=== PATIENT | male | born 1990 ===

== ENCOUNTER 2019-05-14 09:40 | Day surgery (SDC) | payer OTHER ==
[2019-05-14] VITALS (12 sets, daily range): BP systolic 113–135; BP diastolic 64–78
[~2019-05-14] VITALS: Ht 165.1 cm; Wt 68.0 kg
--- NOTE | 2019-05-14 07:33 | Pre-Procedure Note/Attestation ---
Pre-Procedure Note/Attestation Complete Prior to Procedure Planned Procedure: right Procedure Narrative: shoulder arthroscopy, sad, possible slap tear repair Indications for Procedure Pre-Operative Diagnosis: right shoulder slap tear, impingement Attestation I attest that I discussed the nature of the procedure; its benefits; risks and complications; and alternatives (and the risks and benefits of such alternatives ), prior to the procedure, with the patient (or the patient's legal field sales representative). I attest that, if there was a reasonable possibility of needing a blood transfusion, the patient (or the patient's legal field sales representative) was given the [facility] standardized written summary, pursuant to the [employer] Blood Safety Act ([place] Health and Safety Code # 1645, as amended). I attest that I re-evaluated the patient just prior to the surgery and that there has been no change in the patient's H&P, except as documented below: Lorenzo Alamo MD May 14, 2019 07:33
--- NOTE | 2019-05-14 07:34 | Operative Note - PDOC ---
Operative Note Operative Note Pre-op Diagnosis: right shoulder slap tear, impingement Procedure: see op report Post-op Diagnosis: same as pre-op plus Anesthesia: regional Specimen: none Complications: none Condition: stable Estimated Blood Loss: none Implant(s) used?: No Lorenzo Alamo MD May 14, 2019 07:34
[~2019-05-14 09:40] MED LIST: D5 1/2NS 1,000 ML IV SCH; HYDROcodone/Acetamin 5/325 tab ORAL PRN; HYDROmorphone 1mg/ml Carpuject SUBQ PRN; Tylenol #3 tab (300mg/30mg) ORAL PRN; ceFAZolin 1gm IVPB IVPB ONE; celeBREX 200mg Cap **SURGERY PATIENTS ONLY ORAL ONE; oxyCONTIN 20mg tab ORAL ONE
[2019-05-14] MEDS ORDERED: ALEVE220 MG PO (10:47)
[2019-05-14] MEDS ORDERED: celeBREX 200mg Cap **SURGERY PATIENTS ONLY ORAL ONE (10:49)
[2019-05-14] MEDS ORDERED: oxyCONTIN 20mg tab ORAL ONE (10:49)
[2019-05-14] MEDS ORDERED: Lidocaine 1% MPF 10mg/ml 5ml ONE (12:14)
[2019-05-14] MEDS ORDERED: Propofol 200mg/20ml IV ONE (12:14)
[2019-05-14] MEDS ORDERED: Ropivacaine 5mg/ml Vial 20ml INJ ONE (12:19)
[2019-05-14] MEDS ORDERED: Midazolam 2mg/2ml Inj ONE (12:24)
[2019-05-14] MEDS ORDERED: fentaNYL 100 mcg/2 mL IV ONE (12:24)
[2019-05-14] MEDS ORDERED: EPINEPHrine 1mg/1ml Amp ONE (12:55)
[2019-05-14] MEDS ORDERED: Ketorolac 30mg Inj ONE ×2 (12:55→14:20)
[2019-05-14] MEDS ORDERED: Kenalog-40 1ml Vial ONE (12:55)
[2019-05-14] MEDS ORDERED: LR 1000ml ONE (13:00)
[2019-05-14] MEDS ORDERED: NS Irrig 4000ml IRRIG ONE (13:00)
[2019-05-14] MEDS ORDERED: LR 1000ml 1,000 ML IVLG SCH (14:27)
--- NOTE | 2019-05-14 14:27 | Anethesia Preoperative Eval ---
Anesthesia Pre-op PMH/ROS General Date of Evaluation: May 14, 2019 Time of Evaluation: 13:10 Anesthesiologist: eloisa ASA Score: ASA 2 Mallampati Score Class I : Soft palate, uvula, fauces, pillars visible Class II: Soft palate, uvula, fauces visible Class III: Soft palate, base of uvula visible Class IV: Only hard plate visible Mallampati Classification: Class II Surgeon: Jasmeet Diagnosis: R shoulder pain Surgical Procedure: R shoulder scope Anesthesia History: none Family History: no anesthesia problems Allergies: Coded Allergies: No Known Allergies (Unverified , 05/14/19) Medications: see eMAR Patient NPO?: Yes Past Medical History Cardiovascular: Denies: HTN, CAD, [place], valve dz, arrhythmia, other Pulmonary: Denies: asthma, COPD, JUNIE, other Gastrointestinal/Genitourinary: Reports: GERD; Denies: CRI, ESRD, other Neurologic/Psychiatric: Denies: dementia, CVA, depression/anxiety, TIA, other Endocrine: Denies: DM, hypothyroidism, steroids, other HEENT: Denies: cataract (L), cataract (R), glaucoma, NISQUALLY (L), NISQUALLY (R), other Hematology/Immune: Denies: anemia, DVT, bleeding disorder, other Musculoskeletal/Integumentary: Denies: OA, RA, DJD, DDD, edema, other PMH Narrative: as above PSxH Narrative: ORIF ankle Anesthesia Pre-op Phys. Exam Physician Exam Last Vital Signs Date Time Temp Pulse Resp B/P (MAP) Pulse Ox O2 Delivery O2 Flow Rate FiO2 05/14/19 10:52 97.8 53 18 135/78 99 Room Air Constitutional: NAD Neurologic: CN 2-12 intact Cardiovascular: RRR, no M/R/G Respiratory: CTA Gastrointestinal: S/NT/ND Airway Exam Mallampati Score: Class II MO: full Neck: flexible ROM: full Teeth: intact Dentures: no upper, no lower Anesthesia Pre-op A/P Labs Chemistry Test 05/14/19 10:22 Potassium Level 3.9 MMOL/L (3.5-5.1) Studies Pre-op Studies: EKG - NSR Risk Assessment & Plan Assessment: ASA 2 Plan: GA with LMA Brachial plexus block Status Change Before Surgery: No Pre-Antibiotics Drug: Ancef 1gr Given Within 1 Hr of Incision: Yes Time Given: 14:08 Kyle Villela MD May 14, 2019 14:27
[2019-05-14] MEDS ORDERED: Ketorolac 30mg Inj IV PRN (14:30)
[2019-05-14] MEDS ORDERED: DiphenhydrAMINE 50mg/ml Inj IVP PRN (14:30)
[2019-05-14] MEDS ORDERED: Meperidine 25mg/0.5ml Inj (FOR RIGORS ONLY) IV PRN (14:30)
[2019-05-14] MEDS ORDERED: Metoclopramide 10mg/2ml Inj IVP PRN (14:30)
--- NOTE | 2019-05-14 14:54 | Immediate Post-Op Evaluation ---
Immediate Post-Op Evalulation Immediate Post-Op Evalulation Procedure: R shoulder arthroscopy subacromion decompression Date of Evaluation: May 14, 2019 Time of Evaluation: 14:53 IV Fluids: 1000 Blood Products: none Estimated Blood Loss: min Urinary Output: none Blood Pressure Systolic: 116 Blood Pressure Diastolic: 58 Pulse Rate: 68 Respiratory Rate: 20 O2 Sat by Pulse Oximetry: 99 Temperature (Fahrenheit): 97.8 Pain Score (1-10): 1 Nausea: No Vomiting: No Complications none Patient Status: reacts, patent, none Hydration Status: adequate Kyle Villela MD May 14, 2019 14:54
--- NOTE | 2019-05-14 17:13 | 48 Hour Post Anesthesia Eval ---
Post Anesthesia Evaluation Procedure: R shoulder arthroscopy subacromion decompression Date of Evaluation: May 14, 2019 Time of Evaluation: 17:12 Blood Pressure Systolic: 116 0: 74 Pulse Rate: 58 Respiratory Rate: 20 Temperature (Fahrenheit): 97.6 O2 Sat by Pulse Oximetry: 98 Airway: patent Nausea: No Vomiting: No Pain Intensity: 1 Hydration Status: adequate Cardiopulmonary Status: stable Mental Status/LOC: patient returned to baseline Follow-up Care/Observations: n/a Post-Anesthesia Complications: none Follow-up care needed: ready to discharge Kyle Villela MD May 14, 2019 17:13
--- NOTE | 2019-05-15 01:30 | Operative Note - Dictated ---
DATE OF OPERATION: 05/14/2019 PREOPERATIVE DIAGNOSES: 1. Right shoulder labral tear. 2. Impingement syndrome. POSTOPERATIVE DIAGNOSES: 1. Right shoulder labral tear. 2. Grade 1 chondral damage inferior glenoid. 3. Hypertrophic bursal tissue/bursitis. PROCEDURES: 1. Right shoulder diagnostic arthroscopy, extensive intraarticular debridement. 2. Right shoulder subacromial decompression bursectomy. INITIAL DIAGNOSES: 1. Right shoulder diagnostic arthroscopy, limited intra-articular debridement. 2. Right shoulder subacromial decompression bursectomy. SURGEON: Lorenzo Alamo M.D. ANESTHESIA: Interscalene with general. INDICATION FOR PROCEDURE: The patient is a pleasant gentleman who has had progressive right shoulder pain, treated with conservative treatment. He had MRI, which showed possible labral tear. The patient failed conservative treatment and continued to have symptoms. Risks, limitations, expectations, complications of procedure were discussed in detail. All questions addressed. DESCRIPTION OF PROCEDURE: After informed consent was obtained, the patient was brought to the operating room and placed the patient under interscalene general anesthesia. Right shoulder was prepped and draped in a sterile manner. Time-out was performed. Inferolateral stab incision was then made. Trocar was introduced into the glenohumeral joint. The anterior labrum and superior labrum was intact. The subscapularis was intact. The biceps tendon was intact. The undersurface of the rotator cuff was intact. Extending inferiorly, there were no loose bodies in the axillary pouch. The inferior portion of the labrum posteriorly had some evidence of tearing within the substance. Shaver was then placed at the rotator interval. Debridement of the labrum cartilage was performed. Once that was done, the posterior labrum was assessed along with the posterior superior aspect. Once that was done, the camera was then placed in the subacromial space. There was hypertrophic bursal tissue. Lateral working portal was established. Undersurface of the acromion was identified. Four millimeters of the anterior lateral aspect of the acromion was removed from lateral medial and completed the posterior to anterior. A complete bursectomy was completed. Once that was done, the instruments were removed. Portal sites were closed using 3-0 Monocryl sutures. Steri-Strips and a sterile dressing were applied. ESTIMATED BLOOD LOSS: None. COMPLICATIONS: None. SPECIMENS: None. IMPLANTS: None. Lorenzo Alamo M.D. DR: TERESITA JOB#: [id number] CC: DOMENIC
== END 2019-05-14 16:30 | disposition home or self-care (01) ==
LOC: SUR 09:40
DX: S43.401A Unspecified sprain of right shoulder joint, initial encounter (principal); M71.9 Bursopathy, unspecified; K21.9 Gastro-esophageal reflux disease without esophagitis; X58.XXXA Exposure to other specified factors, initial encounter; Y92.9 Unspecified place or not applicable
CPT/HCPCS: 29822; 36415; 84132; J0171; J0690; J1200; J1885; J2250; J2405; J2704; J2795; J3010; J3301; J7120; 94003; 94150